=== PATIENT | female | born 1995 | race Caucasian/White ===

== ENCOUNTER 2021-12-11 06:36 | Inpatient (IN) | payer OTHER ==
[~2021-12-11] VITALS: Ht 152.4 cm; Wt 100.0 kg
[2021-12-11] MEDS ORDERED: NORG1TAB15 PO (07:14)
[2021-12-11 07:33] LABS: BASOPHILS % (AUTO) 0 % (0-10); EOSINOPHILS # (AUTO) 0.1 10^3/uL (0.0-0.3); EOSINOPHILS % (AUTO) 0 % (0-10); HEMATOCRIT 37 % (35-52); LYMPHOCYTES # (AUTO) 1.3 10^3/uL (1.0-4.0); LYMPHOCYTES % (AUTO) 11 % (12-44); MEAN CORPUSCULAR HEMOGLOBIN 27 pg (25-34); MEAN CORPUSCULAR HGB CONC 32 g/dL (32-36); MEAN CORPUSCULAR VOLUME 82 fL (80-99); MEAN PLATELET VOLUME 9.9 fL (9.0-12.2); MONOCYTES % (AUTO) 8 % (0-12); NEUTROPHILS # (AUTO) 10.3 10^3/uL (1.8-7.8); NEUTROPHILS % (AUTO) 80 % (42-75); PLATELET COUNT 260 10^3/uL (130-400); WHITE BLOOD COUNT 12.8 10^3/uL (4.3-11.0)
[2021-12-11 07:36] LABS: CLARITY,URINE CLEAR; COLOR,URINE YELLOW; GLUCOSE, URINE (UA) NEGATIVE (NEGATIVE); KETONES,URINE NEGATIVE (NEGATIVE); LEUKOCYTE ESTERASE ,URINE 2+ (NEGATIVE); NITRITE,URINE NEGATIVE (NEGATIVE); PROTEIN,URINE 2+ (NEGATIVE)
[2021-12-11 07:48] LABS: POTASSIUM 3.6 MMOL/L (3.6-5.0)
[2021-12-11 07:50] LABS: CALCIUM 9.1 MG/DL (8.5-10.1)
[2021-12-11 07:51] LABS: TOTAL PROTEIN 7.6 GM/DL (6.4-8.2)
[2021-12-11 07:52] LABS: BILIRUBIN,TOTAL 1.3 MG/DL (0.1-1.0)
[2021-12-11 07:55] LABS: CREATININE SERUM 0.81 MG/DL (0.60-1.30)
--- NOTE | 2021-12-11 08:00 | ED Abdominal Pain ---
General Chief Complaint: Back Problems Stated Complaint: UPPER LEFT SIDE BACK PAIN Nursing Triage Note: ARRIVED VIA AMB WITH COMPLAINTS OF LEFT LOWER BACK PAIN X2 DAYS. STATES IT HURT TO PEE X2 DAYS AGO. Source of Information: Patient Exam Limitations: No Limitations History of Present Illness Date Seen by Provider: Dec 11, 2021 Time Seen by Provider: 07:10 Initial Comments This 26-year-old young lady presents to the emergency room with complaints of left lower back pain radiating around to the left flank and left abdomen. She reports dysuria and urgency with difficulty remaining continent last week. Those symptoms have since improved. She describes her pain as dull and escalating to sharp with movement and certain positions. She has difficulty laying on her left side. She has been using ibuprofen, Tylenol, and a heating pad with some benefit although less beneficial this morning. She states her abdominal pain feels similar to when she had appendicitis. She denies fever. She is nauseated without vomiting. She reports no constipation or diarrhea. She has not noted any hematuria. Abdominal pain has been present for 2 or 3 days. She is notably tachycardic with a heart rate around 130. Allergies and Home Medications Allergies Coded Allergies: Penicillins (Verified Allergy, Unknown, 12/11/21) cefdinir (Verified Allergy, Unknown, 12/11/21) Patient Home Medication List Home Medication List Reviewed: Yes Aspirin/Acetaminophen/Caffeine (Excedrin Migraine Caplet) 1 Each Tablet, 2 EACH PO Q6-8HR PRN for Headache, (Reported) Entered as Reported by: MARIA INES BRANHAM on 12/11/21 1528 Last Action: Held Levofloxacin (Levofloxacin) 750 Mg Tablet, 750 MG PO DAILY Prescribed by: VALENCIA HARRELL on 12/12/21 0927 Norgestimate-Ethinyl Estradiol (Tri-Sprintec Tablet) 1 Each Tablet, 1 EA PO HS, (Reported) Entered as Reported by: BRITTNEY JARAMILLO on 12/11/21 0714 Last Action: Continued Oxycodone HCl/Acetaminophen (Oxycodone-Acetaminophen 5-325) 1 Each Tablet, 1 EACH PO Q4H PRN for PAIN-SEVERE Prescribed by: VALENCIA HARRELL on 12/12/21 1542 Review of Systems Review of Systems Constitutional: no symptoms reported EENTM: No Symptoms Reported Respiratory: No Symptoms Reported Cardiovascular: See HPI Gastrointestinal: See HPI Genitourinary: See HPI Musculoskeletal: see HPI Skin: no symptoms reported Psychiatric/Neurological: No Symptoms Reported Endocrine: No Symptoms Reported Hematologic/Lymphatic: No Symptoms Reported Past Itqvzak-Etsjbf-Fsroxd Hx Patient Social History Tobacco Use?: No Substance use?: No Alcohol Use?: Yes Alcohol Frequency: Once in a while Immunizations Up To Date Third COVID19 Vaccination Date: 09/30 COVID19 Vaccine Turbine Room Attendant: MODERNA Past Medical History Surgeries: Yes ([place] teeth) Appendectomy Respiratory: No Cardiac: No Neurological: Yes Headaches /Migraines : No Last Menstrual Period: Nov 20, 2021 Reproductive Disorders: Yes (Possibly fibroids) Gastrointestinal: No Musculoskeletal: No Endocrine: No HEENT: No Cancer: No Psychosocial: No Integumentary: No Physical Exam Vital Signs Vital Signs - First Documented 12/11/21 07:00 Temp 37.0 Pulse 120 Resp 16 B/P (MAP) 143/92 (109) Pulse Ox 99 O2 Delivery Room Air Capillary Refill : Less Than 3 Seconds Height/Weight/BMI Height: '" Weight: lbs. oz. kg; 46.00 BMI Method: General Appearance: WD/WN, no apparent distress HEENT: PERRL/EOMI, normal ENT inspection Neck: normal inspection Respiratory: lungs clear, normal breath sounds, no respiratory distress Cardiovascular: no edema, no murmur, tachycardia Gastrointestinal: normal bowel sounds, soft, tenderness (Tender throughout the left abdomen with tenderness to percussion and positive Rovsing when palpated on the right. No masses) Extremities: normal inspection, no pedal edema Back: normal inspection, CVA tenderness (L) Neurologic/Psychiatric: sign maintenance II-XII nml as tested, no motor/sensory deficits, alert, normal mood/affect, oriented x 3 Skin: normal color, warm/dry Focused Exam Lactate Level 12/11/21 08:45: Lactic Acid Level 1.53 Lactic Acid Level Laboratory Tests Test 12/11/21 08:45 Lactic Acid Level 1.53 MMOL/L (0.50-2.00) Progress/Results/Core Measures Results/Orders Lab Results Laboratory Tests Test 12/11/21 07:08 12/11/21 07:25 12/11/21 08:45 Range/Units Urine Color YELLOW Urine Clarity CLEAR Urine pH 6.0 5-9 Urine Specific [place] 1.025 H 1.016-1.022 Urine Protein 2+ H NEGATIVE Urine Glucose (UA) NEGATIVE NEGATIVE Urine Ketones NEGATIVE NEGATIVE Urine Nitrite NEGATIVE NEGATIVE Urine Bilirubin 1+ H NEGATIVE Urine Urobilinogen 0.2 < = 1.0 MG/DL Urine Leukocyte Esterase 2+ H NEGATIVE Urine RBC (Auto) 3+ H NEGATIVE Urine RBC 2-5 H /HPF Urine WBC TNTC H /HPF Urine Squamous Epithelial Cells 2-5 /HPF Urine Crystals NONE /LPF Urine Bacteria FEW H /HPF Urine Casts NONE /LPF Urine Mucus NEGATIVE /LPF Urine Culture Indicated YES White Blood Count 12.8 H 4.3-11.0 10^3/uL Red Blood Count 4.53 3.80-5.11 10^6/uL Hemoglobin 12.0 11.5-16.0 g/dL Hematocrit 37 35-52 % Mean Corpuscular Volume 82 80-99 fL Mean Corpuscular Hemoglobin 27 25-34 pg Mean Corpuscular Hemoglobin Concent 32 32-36 g/dL Red Cell Distribution Width 13.3 10.0-14.5 % Platelet Count 260 130-400 10^3/uL Mean Platelet Volume 9.9 9.0-12.2 fL Immature Granulocyte % (Auto) 1 % Neutrophils (%) (Auto) 80 H 42-75 % Lymphocytes (%) (Auto) 11 L 12-44 % Monocytes (%) (Auto) 8 0-12 % Eosinophils (%) (Auto) 0 0-10 % Basophils (%) (Auto) 0 0-10 % Neutrophils # (Auto) 10.3 H 1.8-7.8 10^3/uL Lymphocytes # (Auto) 1.3 1.0-4.0 10^3/uL Monocytes # (Auto) 1.0 0.0-1.0 10^3/uL Eosinophils # (Auto) 0.1 0.0-0.3 10^3/uL Basophils # (Auto) 0.0 0.0-0.1 10^3/uL Immature Granulocyte # (Auto) 0.1 0.0-0.1 10^3/uL Sodium Level 135 135-145 MMOL/L Potassium Level 3.6 3.6-5.0 MMOL/L Chloride Level 102 98-107 MMOL/L Carbon Dioxide Level 20 L 21-32 MMOL/L Anion Gap 13 5-14 MMOL/L Blood Urea Nitrogen 6 L 7-18 MG/DL Creatinine 0.81 0.60-1.30 MG/DL Estimat Glomerular Filtration Rate 103 BUN/Creatinine Ratio 7 Glucose Level 112 H 70-105 MG/DL Calcium Level 9.1 8.5-10.1 MG/DL Corrected Calcium 9.1 8.5-10.1 MG/DL Total Bilirubin 1.3 H 0.1-1.0 MG/DL Aspartate Amino Transf (AST/SGOT) 16 5-34 U/L Alanine Aminotransferase (ALT/SGPT) 24 0-55 U/L Alkaline Phosphatase 70 40-136 U/L C-Reactive Protein High Sensitivity 11.18 H 0.00-0.50 MG/DL Total Protein 7.6 6.4-8.2 GM/DL Albumin 4.0 3.2-4.5 GM/DL Lipase 8 8-78 U/L Procalcitonin 0.30 H <0.10 NG/ML Serum Test, Qualitative NEGATIVE NEGATIVE Lactic Acid Level 1.53 0.50-2.00 MMOL/L Micro Results Microbiology 12/11/21 Blood Culture - Preliminary, Resulted No growth 12/11/21 Urine Culture - Final, Complete 3 or more isolates My Orders Orders - SILVESTRE MANJARREZ MD Cbc With Automated Diff (12/11/21 07:18) Comprehensive Metabolic Panel (12/11/21 07:18) Hs C Reactive Protein (12/11/21 07:18) Hcg,Qualitative Serum (12/11/21 07:18) Lipase (12/11/21 07:18) Ua Culture If Indicated (12/11/21 07:18) Ed Iv/Invasive Line Start (12/11/21 07:18) Urine Culture (12/11/21 07:08) Blood Culture (12/11/21 08:19) Vital Signs Adult Sepsis Patie Q15M (12/11/21 08:19) Remove Rings In Anticipation O (12/11/21 08:19) Lactic Acid Analyzer (12/11/21 08:19) Ed Iv/Invasive Line Start (12/11/21 08:31) Lactated Ringers (Lr 1000 Ml Iv Solution (12/11/21 08:45) Levofloxacin 750 Mg/150 Ml Iv (Levaquin (12/11/21 08:45) Ondansetron Injection (Zofran Injectio (12/11/21 08:45) Ketorolac Injection (Toradol Injection) (12/11/21 08:45) Ed Admission (Communication) (12/11/21 08:52) Vital Signs/I&O 12/11/21 07:00 Temp 37.0 Pulse 120 Resp 16 B/P (MAP) 143/92 (109) Pulse Ox 99 O2 Delivery Room Air Blood Pressure Mean: 109 Progress Progress Note #1: Time: 07:59 Progress Note Patient seen and examined. Labs pending. IV fluids and Zofran ordered. Progress Note #2: Progress Note Symptoms were treated with Zofran and Toradol. A liter of LR was infused. Patient was found to have evidence of urinary tract infection on urinalysis. Antibiotic therapy was initiated with Levaquin after collecting blood cultures. Levaquin was selected due to allergy profile. CT scan was considered but the more insidious onset of her pain and the lack of significant blood in her urine suggested against the presence of ureteral stone. I have elected to forego the radiation exposure and avoid the CT at this time. Patient is being admitted to the hospitalist service for sepsis. Departure Communication (Admissions) Time/Spoke to Admitting Phy: 08:45 Dr. Harrell Impression Primary Impression: Sepsis Qualified Codes: A41.9 - Sepsis, unspecified organism Additional Impression: Pyelonephritis Disposition: ADMITTED INPATIENT Condition: Improved Admissions Decision to Admit Reason: Admit from ER (General) Decision to Admit/Date: Dec 12, 2021 Time/Decision to Admit Time: 08:40 Departure-Patient Inst. Referrals: NO,LOCAL PHYSICIAN (PCP/Family) Primary Care Physician Scripts Oxycodone HCl/Acetaminophen (Oxycodone-Acetaminophen 5-325) 1 Each Tablet 1 EACH PO Q4H PRN for PAIN-SEVERE MDD 6 for 5 Days, #10 TAB Prov: VALENCIA HARRELL MD 12/12/21 Levofloxacin (Levofloxacin) 750 Mg Tablet 750 MG PO DAILY for 8 Days, #8 TAB Prov: VALENCIA HARRELL MD 12/12/21 SILVESTRE MANJARREZ MD Dec 11, 2021 08:00
[2021-12-11 08:09] LABS: BACTERIA,URINE FEW /HPF; BILIRUBIN,URINE 1+ (NEGATIVE); WBC,URINE TNTC /HPF
[2021-12-11] MEDS ORDERED: KETOROLAC 30 MG/ML VIAL IVP ONE (08:45)
[2021-12-11] MEDS ORDERED: ONDANSETRON 4 MG/2 ML (SDV) Z0FRAN IVP ONE (08:45)
[2021-12-11] MEDS ORDERED: LACTATED RINGERS 1,000 ML IV ONE (08:45)
[2021-12-11 10:30] VITALS: BP_SYST 153; BP_SYST 154; BP_DIAS 75; BP_DIAS 97
[2021-12-11] MEDS: LACTATED RINGERS 1,000 ML IV SCH ×2 (10:53→17:38)
[2021-12-11] MEDS ORDERED: ACETAMINOPHEN 500 MG TAB (TYLENOL) PO PRN ×2 (11:00→19:30)
[2021-12-11] MEDS ORDERED: fentaNYL INJ 100 MCG/2 ML AMP IVP PRN (11:00)
[2021-12-11] MEDS ORDERED: ONDANSETRON 4 MG/2 ML (SDV) Z0FRAN IVP PRN (13:00)
[2021-12-11] MEDS ORDERED: ASPI-789 PO (15:28)
[2021-12-11 16:00] VITALS: BP 131/69
[2021-12-11] MEDS ORDERED: KETOROLAC 30 MG/ML VIAL IVP PRN (17:00)
[2021-12-11] MEDS ORDERED: polyethylene glycoL POWDER 17 GM (MIRALAX) PACK PO PRN (19:15)
[2021-12-11] MEDS ORDERED: MELATONIN 3 MG TABLET PO PRN (19:15)
[2021-12-11] MEDS ORDERED: ANTACID SUSP 30 ML UDC (MYLANTA) PO PRN (19:15)
[2021-12-11] MEDS ORDERED: diphenhydrAMINE 25 MG TAB (BENADRYL) PO PRN (19:15)
--- NOTE | 2021-12-11 19:20 | History & Physical-Hospitalist ---
History of Present Illness HPI/Chief Complaint Vianca Hassan is a 26 year old female who presented with back pain. She reports having dysuria, frequency, and urgency last week. Those symptoms resolved on their own in a few days. She then developed back pain. She also reports nausea and vomiting. She reports low grade fevers at home. She denies chest pain. She denies abdominal pain. She has not taken any antibiotics. She does not take any medications regularly other than control. Source: patient Exam Limitations: no limitations Date Seen 12/11/21 Time Seen by a Provider: 11:00 Attending Physician Valencia Harrell MD PCP No,Local Physician Referring Physician Date of Admission Dec 11, 2021 at 08:54 Home Medications & Allergies Home Medications Reviewed patient Home Medication Reconciliation performed by pharmacy medication reconciliations dairy technician and/or nursing. Patients Allergies have been reviewed. Allergies Allergies Coded Allergies Penicillins (Verified Allergy, Unknown, 12/11/21) cefdinir (Verified Allergy, Unknown, 12/11/21) Past Yuffydp-Eydksn-Uuloas Hx Patient Social History Tobacco Use?: No Use of E-Cig and/or Vaping dev: No Substance use?: Yes Substance type: Marijuana Substance frequency: Daily Alcohol Use?: Yes Alcohol Frequency: Once in a while Pt feels they are or have been: No Immunizations Up To Date Date of Influenza Vaccine: Sep 10, 2021 First/Initial COVID19 Vaccinat: 09/30 Second COVID19 Vaccination Margarito: 09/30 Tetanus Booster (TDap): Less Than 5 Years Hepatitis A: No Hepatitis B: No Current Status Advance Directives: No Communicates: Verbally Primary Language: Malagasy Preferred Spoken Language: Malagasy Is interpretation needed?: No Implanted or Applied Medical D: None Past Medical History Surgeries: Appendectomy Headaches /Migraines Family Medical History No Pertinent Family Hx Review of Systems Constitutional: fever EENTM: no symptoms reported Respiratory: no symptoms reported Cardiovascular: no symptoms reported Gastrointestinal: nausea, vomiting Genitourinary: dysuria, frequency Musculoskeletal: back pain Skin: no symptoms reported Psychiatric/Neurological: No Symptoms Reported Physical Exam Physical Exam Vital Signs Vital Signs - First Documented 12/11/21 07:00 Temp 37.0 Pulse 120 Resp 16 B/P (MAP) 143/92 (109) Pulse Ox 99 O2 Delivery Room Air Capillary Refill : Less Than 3 Seconds Height, Weight, BMI Height: '" Weight: lbs. oz. kg; 43.05 BMI Method: General Appearance: No Apparent Distress, Obese HEENT: PERRL/EOMI, Pharynx Normal Neck: Normal Inspection, Supple Respiratory: Lungs Clear, Normal Breath Sounds, No Respiratory Distress Cardiovascular: Regular Rate, Rhythm, No Edema, No Murmur Gastrointestinal: Normal Bowel Sounds, Non Tender, Soft Back: CVA Tenderness (L); No CVA Tenderness (R) Extremity: Normal Inspection, Non Tender, No Pedal Edema Neurologic/Psychiatric: Alert, Oriented x3, No Motor/Sensory Deficits, Normal Mood/Affect Skin: Normal Color, Diaphoresis Results Results/Procedures Labs Laboratory Tests 12/11/21 07:25 Patient resulted labs reviewed. Assessment/Plan Admission Diagnosis Sepsis due to pyelonephritis Admission Status: Inpatient Order (span 2 midnights) Reason for Inpatient Admission: IV antibiotics Assessment and Plan Sepsis due to pyelonephritis SIRS+ with leukocytosis and tacycardia UA consistent with UTI Urine culture pending Symptoms consistent with pyelonephritis Antiemetics ordered Pain regimen IV fluids Levaquin Morbid obesity Clinically significant, no acute management needs DVT prophylaxis: ambulation Diagnosis/Problems Diagnosis/Problems (1) Sepsis Status: Acute (2) Pyelonephritis Status: Acute (3) Morbid obesity Status: Chronic VALENCIA HARRELL MD Dec 11, 2021 19:20
[2021-12-11 19:49] VITALS: BP 148/90
[2021-12-11] MEDS ORDERED: norgestimate-ethinyl estradioL 1 EACH TABLET PO SCH (21:00)
[2021-12-12] VITALS: BP 113/58
[2021-12-12] MEDS: LACTATED RINGERS 1,000 ML IV SCH ×2 (00:34→07:16)
[2021-12-12 04:00] VITALS: BP 132/86
[2021-12-12 06:03] LABS: BASOPHILS % (AUTO) 0 % (0-10); EOSINOPHILS # (AUTO) 0.1 10^3/uL (0.0-0.3); EOSINOPHILS % (AUTO) 1 % (0-10); HEMATOCRIT 33 % (35-52); HEMOGLOBIN 10.5 g/dL (11.5-16.0); LYMPHOCYTES # (AUTO) 1.6 10^3/uL (1.0-4.0); LYMPHOCYTES % (AUTO) 15 % (12-44); MEAN CORPUSCULAR HEMOGLOBIN 26 pg (25-34); MEAN CORPUSCULAR HGB CONC 32 g/dL (32-36); MEAN CORPUSCULAR VOLUME 82 fL (80-99); MEAN PLATELET VOLUME 9.8 fL (9.0-12.2); MONOCYTES % (AUTO) 9 % (0-12); NEUTROPHILS # (AUTO) 8.1 10^3/uL (1.8-7.8); NEUTROPHILS % (AUTO) 75 % (42-75); PLATELET COUNT 223 10^3/uL (130-400); WHITE BLOOD COUNT 10.7 10^3/uL (4.3-11.0)
[2021-12-12 06:19] LABS: POTASSIUM 3.7 MMOL/L (3.6-5.0)
[2021-12-12 06:20] LABS: CALCIUM 8.7 MG/DL (8.5-10.1)
[2021-12-12 06:25] LABS: CREATININE SERUM 0.68 MG/DL (0.60-1.30)
[2021-12-12 08:00] VITALS: BP 134/84
[2021-12-12] MEDS ORDERED: LEVOFLOXACIN 750 MG/D5W 150 ML PRE-MIX IV SCH (09:00)
[2021-12-12] MEDS ORDERED: LEVO750T39 PO (09:27)
[2021-12-12] MEDS ORDERED: [UNRECOGNIZED DRUG - CODE] PO (09:27)
[2021-12-12 10:55] VITALS: BP 134/84
[2021-12-12] MEDS ORDERED: OXYC1TAB11 PO (15:41)
--- NOTE | 2021-12-12 23:00 | Discharge Summary ---
Discharge Summary Hospital Course Problems/Dx: (1) Sepsis Status: Acute Qualifiers: Qualified Codes: A41.9 - Sepsis, unspecified organism (2) Pyelonephritis Status: Acute (3) Morbid obesity Status: Chronic Hospital Course Date of Admission: Dec 11, 2021 at 08:54 Admission Diagnosis : Sepsis due to pyelonephritis Family Physician/Provider: Izabela Gonzalez Physician Date of Discharge: 12/12/21 Discharge Diagnosis: Sepsis due to pyelonephritis Hospital Course: Vianca Hassan is a 26 year old female who was admitted with sepsis due to pyelonephritis. She was treated with IV fluids and Levaquin and her symptoms improved. Her urine culture returned with multiple isolates suggesting contamination, though there were only 2-5 squamous cells on the urinalysis. She was given a prescription to complete a course of Levaquin. She needs to establish care with a primary care physician. She was discharged home in stable condition. Labs and Pending Lab Test: Laboratory Tests 12/12/21 05:54: White Blood Count 10.7, Red Blood Count 3.99, Hemoglobin 10.5L, Hematocrit 33L, Mean Corpuscular Volume 82, Mean Corpuscular Hemoglobin 26, Mean Corpuscular Hemoglobin Concent 32, Red Cell Distribution Width 13.2, Platelet Count 223, Mean Platelet Volume 9.8, Immature Granulocyte % (Auto) 1, Neutrophils (%) (Auto) 75, Lymphocytes (%) (Auto) 15, Monocytes (%) (Auto) 9, Eosinophils (%) (Auto) 1, Basophils (%) (Auto) 0, Neutrophils # (Auto) 8.1H, Lymphocytes # (Auto) 1.6, Monocytes # (Auto) 1.0, Eosinophils # (Auto) 0.1, Basophils # (Auto) 0.0, Immature Granulocyte # (Auto) 0.1, Sodium Level 135, Potassium Level 3.7, Chloride Level 105, Carbon Dioxide Level 20L, Anion Gap 10, Blood Urea Nitrogen 4L, Creatinine 0.68, Estimat Glomerular Filtration Rate 124, BUN/Creatinine Ratio 6, Glucose Level 106H, Calcium Level 8.7 Microbiology 12/11/21 Blood Culture - Preliminary, Resulted No growth 12/11/21 Urine Culture - Final, Complete 3 or more isolates Home Meds Active Oxycodone-Acetaminophen 5-325 (Oxycodone HCl/Acetaminophen) 1 Each Tablet 1 Each PO Q4H PRN MDD 6 5 Days Levofloxacin 750 Mg Tablet 750 Mg PO DAILY 8 Days Reported Excedrin Migraine Caplet (Aspirin/Acetaminophen/Caffeine) 1 Each Tablet 2 Each PO Q6-8HR PRN Tri-Sprintec Tablet (Norgestimate-Ethinyl Estradiol) 1 Each Tablet 1 Ea PO HS Assessment/Pt Instructions See instructions Discharge Planning: <30 minutes discharge planning Discharge Instructions Discharge Diet: No Restrictions Activity as Tolerated: Yes Discharge Physical Examination Vital Signs Vital Signs Date Time Temp Pulse Resp B/P (MAP) Pulse Ox O2 Delivery O2 Flow Rate FiO2 12/12/21 10:55 36.5 107 18 134/84 100 Room Air Allergies: Coded Allergies: Penicillins (Verified Allergy, Unknown, 12/11/21) cefdinir (Verified Allergy, Unknown, 12/11/21) Discharge Summary Date of Admission Dec 11, 2021 at 08:54 Date of Discharge Dec 12, 2021 at 11:00 Discharge Date: Dec 12, 2021 Discharge Time: 11:00 Admission Diagnosis Sepsis due to pyelonephritis Discharge Diagnosis Sepsis due to pyelonephritis (1) Sepsis Status: Acute Qualifiers: Qualified Codes: A41.9 - Sepsis, unspecified organism (2) Pyelonephritis Status: Acute (3) Morbid obesity Status: Chronic VALENCIA HARRELL MD Dec 12, 2021 22:55
== END 2021-12-12 11:00 | disposition home or self-care (01) | DRG 872 ==
LOC: ER 06:44 → 4TH 08:54
PROVIDERS: ADMIT Internal Medicine; ATTEND Internal Medicine
DX: A41.9 Sepsis, unspecified organism (principal); N10 Acute pyelonephritis; Z68.41 Body mass index [BMI] 40.0-44.9, adult; E66.01 Morbid (severe) obesity due to excess calories; G43.909 Migraine, unspecified, not intractable, without status migrainosus; Z88.0 Allergy status to penicillin; Z79.82 Long term (current) use of aspirin; Z79.899 Other long term (current) drug therapy
CPT/HCPCS: 36415; 80048; 80053; 81000; 83605; 83690; 84145; 84703; 85025; 86141; 87040; 87088